=== PATIENT | female | born 1985 | race Caucasian/White ===

== ENCOUNTER → 2018-01-16 15:02 | Outpatient (CLI) | payer BC, SELFPAY ==
[2018-01-22 10:52] LABS: AFP 40.7 ng/mL; Calc Gestational Age 17.6; Hx of Neural Tube Defect N; Inhibin A Value 124 pg/mL; Method of Estimation US; Prev Pregnancy with Down Syndr NOT GIVEN
== END ==
PROVIDERS: Visit Provider Obstetrics & Gynecology
DX: Z34.82 Encounter for supervision of other normal pregnancy, second trimester (principal)
CPT/HCPCS: 36415; 82105; 82677; 84702; 86336

== ENCOUNTER → 2018-02-12 10:45 | Outpatient (CLI) | payer BC, SELFPAY ==
--- NOTE | 2018-02-12 10:47 | DI.US.S_ITS ---
PROCEDURE: US OB >= 14 WEEKS FETUS INDICATIONS: anatomy survey OUTSIDE/PRIOR DATING DATA: Last menstrual period (LMP): 09/15/17. LMP-based estimated date of delivery (KENNEDY): 06/22/18. First dating scan (date and location): 11/20/17. Estimated date of delivery (KENNEDY) from first dating scan: 06/24/18. TECHNIQUE: Real-time scanning was performed of the fetus, with image documentation and biometric measurements. Endovaginal scanning: No COMPARISON: [facility], , OB >= 14 WEEKS FETUS, 01/16/2018, 14:52. FINDINGS: General: A single living intrauterine gestation is present. Presentation: Vertex. Placenta: Placental position is anterior, without previa. Amniotic fluid index: 12.0 cm, normal range is 5-24 cm. heart rate: 153 beats per minute. Maternal cervical canal: 3.9 cm long. biometrics: Biparietal diameter: 22 weeks 3 days Head circumference: 22 weeks 0 days Abdominal circumference: 21 weeks 1 day Femur length: 21 weeks 3 days Estimated gestational age from initial scan: 21 weeks 1 day Composite gestational age from present scan: 21 weeks 5 days Estimated weight and percentile: 424 g; 61st percentile Measurement variability for biometric dating: +/- 7 days from 14 weeks to 15 weeks 6 days gestation, +/- 10 days from 16 weeks to 21 weeks 6 days gestation, +/- 2 weeks from 22 weeks to 27 weeks 6 days gestation, +/- 3 weeks for 28 weeks gestation or later. weight reference: 4500 g or EFW >90/95% is considered macrosomia or large for gestational age. EFW <10% is small for gestational age. EFW 5% or less is considered intra-uterine growth restriction. Anatomic survey: Neuro: Ventricles are non-dilated at less than 10 mm. Cisterna magna is normal at 3-11 mm. Cerebellum is normal in size and morphology. Nuchal skin fold: Normal at less than 6 mm between 14-21 weeks gestational age. Face: Nose and lips, facial profile are normal. Spine: No evidence for spina bifida. Heart: 4-chambered heart is present, with normal ventricular outflow tracts. Diaphragm: Diaphragm is intact. Stomach: Left-sided stomach is present. Kidneys: No hydronephrosis. Normal is less than 5 mm in 2nd trimester, less than 7 mm in 3rd trimester. Cord: 3-vessel cord has orthotopic insertion. Bladder: Normal in size. Extremities: All 4 extremities identified. IMPRESSION: 1. Single living IUP redemonstrated and interval growth is normal. 2. Normal anatomic survey. Dictated by: Kevin Gleason [facility] Interpreted: Sandi Ramon MD on 02/12/2018 at 11:58 Approved by: Sandi Ramon MD, PhD on 02/12/2018 at 14:40
== END ==
PROVIDERS: Visit Provider Obstetrics & Gynecology
DX: Z34.82 Encounter for supervision of other normal pregnancy, second trimester (principal); Z3A.21 21 weeks gestation of pregnancy
CPT/HCPCS: 76811

== ENCOUNTER → 2018-03-13 09:42 | Outpatient (CLI) | payer BC, SELFPAY ==
[2018-03-13 12:14] LABS: Hematocrit 33.5 % (36-46)
[2018-03-13 12:21] LABS: GTT (PREG) 1 Hour PP 50gm Dose 93 mg/dL (76-139)
== END ==
PROVIDERS: Visit Provider Obstetrics & Gynecology
DX: Z34.82 Encounter for supervision of other normal pregnancy, second trimester (principal)
CPT/HCPCS: 36415; 82950; 85014; 85018

== ENCOUNTER → 2018-05-29 11:42 | Outpatient (CLI) | payer BC, SELFPAY ==
[2018-05-30 13:56] LABS: Strep Grp B PCR NEG for Grp B Strep
== END ==
PROVIDERS: PCP Nurse Practitioner Family; Visit Provider Obstetrics & Gynecology
DX: Z3A.36 36 weeks gestation of pregnancy (principal)
CPT/HCPCS: 87653

== ENCOUNTER 2018-06-16 14:29 | Outpatient (CLI) | payer BC, SELFPAY | END 2018-06-16 15:02 | disposition home or self-care (01) | LOC: LABOR 14:38 → OB 06-17 15:19 | PROVIDERS: PCP Nurse Practitioner Family; Visit Provider Obstetrics & Gynecology | DX: Z34.83 Encounter for supervision of other normal pregnancy, third trimester (principal); Z3A.39 39 weeks gestation of pregnancy | CPT/HCPCS: 59025; G0378; G0379 ==

== ENCOUNTER 2018-06-17 18:16 | Inpatient (IN) | payer BC, SELFPAY ==
[2018-06-17 19:26] LABS: Add Manual Diff / Slide Review NO; Basophils Percent Auto 0.4 % (0-2); Eosinophils Percent Auto 0.6 % (2-4); Hematocrit 41.4 % (36-46); Hemoglobin 14.3 g/dL (12.0-16.0); Mean Corpuscular HGB Conc 34.5 % (30-36); Mean Corpuscular Hemoglobin 33.3 PG (26-34); Mean Corpuscular Volume 96.5 fL (80-100); Monocytes Percent Auto 6.3 % (3-14); Neutrophils Absolute Auto 11300 /uL (3000-5900); Neutrophils Percent Auto 76.7 % (50-75); Platelet Count 171 X10^3/uL (150-400); Red Blood Cell Count 4.29 X10^6/uL (4.0-5.2); Red Cell Distribution Width 12.7 % (11.6-14.8); White Blood Cell Count 14.7 X10^3/uL (4.5-11.0)
[2018-06-17 20:47] VITALS: BP 106/56
[2018-06-17] MEDS: IBUPROFEN 600 MG TABLET PO (22:40)
[2018-06-17] MEDS: DERMOPLAST SPRAY 20% 60 ML 1 SPRAY TOP (22:41)
[2018-06-18] MEDS: IBUPROFEN 600 MG TABLET PO ×3 (03:46→16:03)
[2018-06-18 08:21] LABS: Hematocrit 34.7 % (36-46); Hemoglobin 12.2 g/dL (12.0-16.0)
[2018-06-18] MEDS: DOCUSATE 250 MG CAPSULE PO (09:08)
[2018-06-18 13:50] VITALS: BP 106/69; PULSE 79; RESP 16; TEMP 36.8
--- NOTE | 2018-07-12 13:28 | PM.OBPRVD ---
Delivery date: 06/17/18 Intrapartal events: None Induction method: none Delivery monitor: external FHT and external uterine Route of delivery: Episiotomy description: None Laceration description: Perineal - 1st Degree Delivery repair: chromic Estimated blood loss (mL): 150 Anesthesia type: Epidural Complications: None Narrative: The patient was complete and pushed for 15 min. At 7:40 p.m., a live male delivered spontaneously over an intact perineum. No nuchal cord. The remainder of the body delivered without difficulty and was placed on mom's abdomen. The cord was double clamped and cut. Cord bloods were obtained. Placenta delivered intact with a 3 vessel cord at 7:58 p.m.. Pitocin was given in the IV fluids. Fundus was massaged to firm. Apgars 9 at 1 min and 9 at 5 min. A first-degree perineal laceration was repaired with 2 0 chromic in the usual fashion. Estimated blood loss 150 cc. Weight 7 lb 11.28 oz. . Epidural analgesia. Mom and stable to recovery. Plan for aftercare: To routine care
== END 2018-06-18 18:50 | disposition home or self-care (01) | DRG 806 ==
PROVIDERS: Admitting Provider Obstetrics & Gynecology; PCP Nurse Practitioner Family; Visit Provider Obstetrics & Gynecology
DX: O75.89 Other specified complications of labor and delivery (principal); C81.90 Hodgkin lymphoma, unspecified, unspecified site; Z37.0 Single live birth; Z3A.39 39 weeks gestation of pregnancy; O70.0 First degree perineal laceration during delivery
CPT/HCPCS: 01967; 36415; 59025; 59050; 59400; 85014; 85018; 85025; 86850; 86900; 86901